=== PATIENT | male | born 1945 | race Caucasian/White ===

== ENCOUNTER → 2021-03-02 | Outpatient (CLI) | payer MEDICARE | LOC: KOH-I 10:32 | DX: M79.671 Pain in right foot (principal); M79.672 Pain in left foot; M19.072 Primary osteoarthritis, left ankle and foot; M19.071 Primary osteoarthritis, right ankle and foot | CPT/HCPCS: 73630 ==

== ENCOUNTER 2021-10-09 01:36 | Inpatient (IN) | payer MEDICARE ==
[~2021-10-09] VITALS: Ht 182.9 cm; Wt 127.5 kg
[2021-10-09 02:03] LABS: HEMOGLOBIN 9.6 gm/dl (14.0-17.5); RED BLOOD COUNT 3.38 M/UL (4.20-5.50)
[2021-10-09] MEDS ORDERED: NEURONTIN 100100 MG PO (09:41)
[2021-10-09] MEDS ORDERED: FLOMAX 0.4 MG0.4 MG PO (09:42)
[2021-10-09] MEDS ORDERED: METFORMIN ER G500 MG PO (09:42)
[2021-10-09] MEDS ORDERED: ZESTRIL/PRINIVI10 MG PO (09:43)
[2021-10-09] MEDS ORDERED: SYNTHROID175 MCG PO (09:43)
[2021-10-09] MEDS ORDERED: LANTUS100 UNIT/1 SC (09:44)
[2021-10-09] MEDS ORDERED: AMARYL4 MG PO (09:45)
[2021-10-09 12:02] LABS: HEMOGLOBIN 9.9 gm/dl (14.0-17.5); RED BLOOD COUNT 3.46 M/UL (4.20-5.50); WHITE BLOOD COUNT 10.6 K/UL (4.5-11.0)
[2021-10-09 19:39] LABS: HEMOGLOBIN 10.7 gm/dl (14.0-17.5); RED BLOOD COUNT 3.75 M/UL (4.20-5.50); WHITE BLOOD COUNT 10.6 K/UL (4.5-11.0)
[2021-10-10 00:34] LABS: HEMOGLOBIN 10.8 gm/dl (14.0-17.5); RED BLOOD COUNT 3.76 M/UL (4.20-5.50); WHITE BLOOD COUNT 13.2 K/UL (4.5-11.0)
[2021-10-10 06:09] LABS: HEMOGLOBIN 10.6 gm/dl (14.0-17.5); RED BLOOD COUNT 3.68 M/UL (4.20-5.50); WHITE BLOOD COUNT 11.7 K/UL (4.5-11.0)
[2021-10-10] MEDS ORDERED: OMEGA 3 FISH O1 EACH PO (13:33)
[2021-10-10] MEDS ORDERED: PRESERVISION A1 EAC3 PO (13:34)
[2021-10-10] MEDS ORDERED: CRESTOR 10 MG T10 MG PO (13:35)
[2021-10-10] MEDS ORDERED: VITAMIN B-121000 MC3 PO (13:36)
[2021-10-10] MEDS ORDERED: CANDICIDAL CAP1 EACH PO (13:36)
[2021-10-10] MEDS ORDERED: VITAMIN D325 MCG PO (13:37)
[2021-10-10] MEDS ORDERED: PREVAGEN PO (13:39)
[2021-10-10] MEDS ORDERED: NORVASC10 MG PO (13:47)
[2021-10-10] MEDS ORDERED: PEPCID40 MG PO (13:50)
[2021-10-10] MEDS ORDERED: MIRALAX17 GM PO (13:51)
[2021-10-10] MEDS ORDERED: ALLEGRA ALLERGY60 MG PO (13:51)
[2021-10-10] MEDS ORDERED: FLONASE 0.05% N16 GM (13:51)
[2021-10-10 19:56] LABS: ACINETOBACTER BAUMANNII Not Detected (Negative); CANDIDA ALBICANS Not Detected (Negative); CANDIDA KRUSEI Not Detected (Negative); CANDIDA TROPICALIS Not Detected (Negative); ENTEROCOCCUS Not Detected (Negative); ESCHERICHIA COLI Not Detected (Negative); HAEMOPHILUS INFLUENZAE Not Detected (Negative); KLEBSIELLA OXYTOCA Not Detected (Negative); KLEBSIELLA PNEUMONIAE Not Detected (Negative); KPC-CARBAPENEM-RESISTANCE GENE Not Detected (Negative); PROTEUS Not Detected (Negative); PSEUDOMONAS AERUGINOSA Not Detected (Negative); SERRATIA MARCESANS Not Detected (Negative); STAPHYLOCOCCUS AUREUS Not Detected (Negative); STREP AGALACTIAE (GROUP B) Not Detected (Negative); STREP PYOGENES (GROUP A) Not Detected (Negative); STREPTOCOCCUS Not Detected (Negative); vanA/B (VANCOMYCIN RESIST GENE Not Detected (Negative)
[2021-10-10 21:11] LABS: STAPHYLOCOCCUS DETECTED (Negative); mecA (METHICILLIN RESIST GENE DETECTED (Negative)
== END 2021-10-10 23:15 | disposition short-term general hospital (02) | DRG 308 ==
LOC: ER1 01:36 → CDU 03:24 → CCU 07:59
PROVIDERS: Internal Medicine; Student in an Organized Health Care Education/Training Program; ADMIT Internal Medicine
PROC: 5A12012 Performance of Cardiac Output, Single, Manual (ICD-10-PCS; principal; 2021-10-09)
PROC: 3E033XZ Introduction of Vasopressor into Peripheral Vein, Percutaneous Approach (ICD-10-PCS; 2021-10-09)
PROC: B24BZZZ Ultrasonography of Heart with Aorta (ICD-10-PCS; 2021-10-09)
PROC: 5A1935Z Respiratory Ventilation, Less than 24 Consecutive Hours (ICD-10-PCS; 2021-10-09)
PROC: 02HV33Z Insertion of Infusion Device into Superior Vena Cava, Percutaneous Approach (ICD-10-PCS; 2021-10-09)
PROC: B548ZZA Ultrasonography of Superior Vena Cava, Guidance (ICD-10-PCS; 2021-10-09)
PROC: 03HY32Z Insertion of Monitoring Device into Upper Artery, Percutaneous Approach (ICD-10-PCS; 2021-10-09)
DX: I49.01 Ventricular fibrillation (principal); R57.0 Cardiogenic shock; K72.00 Acute and subacute hepatic failure without coma; Z20.822 Contact with and (suspected) exposure to COVID-19; J69.0 Pneumonitis due to inhalation of food and vomit; N17.0 Acute kidney failure with tubular necrosis; R09.2 Respiratory arrest; E87.2 Acidosis; M96.89 Other intraoperative and postprocedural complications and disorders of the musculoskeletal system; R78.81 Bacteremia; I46.2 Cardiac arrest due to underlying cardiac condition; I47.2 Ventricular tachycardia; J32.9 Chronic sinusitis, unspecified; E11.42 Type 2 diabetes mellitus with diabetic polyneuropathy; M19.90 Unspecified osteoarthritis, unspecified site; E66.9 Obesity, unspecified; N18.31 Chronic kidney disease, stage 3a; Y84.8 Other medical procedures as the cause of abnormal reaction of the patient, or of later complication, without mention of misadventure at the time of the procedure; I12.9 Hypertensive chronic kidney disease with stage 1 through stage 4 chronic kidney disease, or unspecified chronic kidney disease; Z96.653 Presence of artificial knee joint, bilateral; R74.01 Elevation of levels of liver transaminase levels; I45.10 Unspecified right bundle-branch block; E11.65 Type 2 diabetes mellitus with hyperglycemia; E11.22 Type 2 diabetes mellitus with diabetic chronic kidney disease; Z96.611 Presence of right artificial shoulder joint; N40.0 Benign prostatic hyperplasia without lower urinary tract symptoms; I48.91 Unspecified atrial fibrillation; Z79.01 Long term (current) use of anticoagulants; Z85.820 Personal history of malignant melanoma of skin; Z82.49 Family history of ischemic heart disease and other diseases of the circulatory system; Z79.4 Long term (current) use of insulin; Z68.38 Body mass index [BMI] 38.0-38.9, adult
CPT/HCPCS: ECHO; 36415; 36600; 70450; 71045; 72125; 80048; 80053; 81001; 82040; 82550; 82553; 82803; 82962; 83036; 83605; 83735; 83880; 84100; 84484; 85025; 85384; 85610; 85730; 86850; 86900; 86901; 87040; 87150; 92950; 93005; 93306; 94002; 94003; 94760; 99285; C9113; J0171; J1265; J1644; J2060; J2185; J2250; J2704; J3010; J3370; J3475; J3480; J7030; J7070; Q9967; U0002